=== PATIENT | female | born 1995 | race Caucasian/White ===

== ENCOUNTER 2018-02-09 09:08 | Emergency (ER) | payer SELFPAY ==
[~2018-02-09] VITALS: Ht 152.4 cm; Wt 56.7 kg
[2018-02-09 09:12] VITALS: Ht 152.4 cm; Wt 56.7 kg
[2018-02-09 09:42] LABS: CARBON DIOXIDE 28.9 mmol/L (21-32); CHLORIDE SERUM 103 mmol/L (98-107); CREATININE SERUM 0.8 mg/dL (0.6-1.0); GFR1 > 60 mL/min; GLUCOSE SERUM 123 mg/dL (74-106); POTASSIUM SERUM 4.1 mmol/L (3.5-5.1); SODIUM SERUM 137 mmol/L (136-145)
[2018-02-09 09:46] LABS: ALBUMIN 3.8 g/dL (3.4-5.0); ALKALINE PHOSPHATASE 66 U/L (46-116); ALT/SGPT 32 U/L (14-59); AST/SGOT 75 U/L (15-37); BILIRUBIN TOTAL 1.03 mg/dL (0.20-1.00); LIPASE 88 IU/L (73-393)
[2018-02-09 09:52] LABS: BASOPHIL % 0.4 % (0-2); PLATELET COUNT 273 x10^3mcL (130-400); RED CELL DISTRIBUTION WIDTH 13.2 % (11.5-14.5)
[2018-02-09 10:44] VITALS: BP 102/58
== END 2018-02-09 10:44 | disposition home or self-care (01) ==
LOC: ED 09:08
PROVIDERS: Emergency Medicine
DX: R10.13 Epigastric pain (principal)
CPT/HCPCS: 36415; J1885; J2550